=== PATIENT | female | born 1985 | race Hispanic/Latino ===

== ENCOUNTER → 2024-02-05 07:11 | Outpatient (REF) | payer OTHER, SELFPAY ==
[2024-02-05 09:16] LABS: Blood Urea Nitrogen 14 mg/dl (7-17); Calcium 8.8 mg/dl (8.4-10.2); Carbon Dioxide 23 mmol/L (22-30); Chloride 110 mmol/L (98-107); Glucose 94 mg/dl (70-99); Potassium 4.4 mmol/L (3.5-5.1); Sodium 135 mmol/L (135-145); eGFR > 60.00
[2024-02-05 09:21] LABS: Vitamin D, 25-OH*** 32.6 ng/mL (30-80)
[2024-02-05 09:31] LABS: Glycohemoglobin (HgbA1c) 5.8 % (4.0-5.6)
== END ==
LOC: CLINIC 07:11
PROVIDERS: ATTENDING PHYSICIAN Nurse Practitioner Adult Health
DX: E55.9 Vitamin D deficiency, unspecified (principal); R73.9 Hyperglycemia, unspecified
CPT/HCPCS: 36415; 80048; 82306; 83036

== ENCOUNTER → 2024-08-06 07:28 | Outpatient (REF) | payer OTHER, SELFPAY ==
[2024-08-06 08:05] LABS: % Basophils 0.6 % (0-2); % Eosinophils 3.6 % (0-6); % Immature Granulocytes 0.2 % (0-0.5); % Lymphocytes 29.9 % (20.5-51.1); % Monocytes 7.2 % (1.7-9.3); % Neutrophils 58.5 % (42.2-75.2); Absolute Basophils 0.1 10^3/uL (0-0.2); Absolute Eosinophils 0.3 10^3/uL (0-0.7); Absolute Lymphocytes 2.5 10^3/uL (1.2-3.4); Absolute Monocytes 0.6 10^3/uL (0.1-0.6); Absolute Neutrophils 4.9 10^3/uL (1.4-6.5); Hematocrit 36.4 % (37.0-47.0); Hemoglobin 12.3 g/dL (12.0-16.0); Mean Corp Hgb Conc. 33.8 g/dL (33.0-37.0); Mean Corpuscular Volume 82.9 fL (81.0-99.0); Mean Platelet Volume 9.5 fL (7.4-10.4); Nucleated Red Blood Cells % 0 %; Platelet Count 415 10^3/uL (130-400); Red Blood Cell Count 4.39 10^6/uL (4.20-5.40); Red Cell Dist. Width 13.7 % (11.5-14.5); White Blood Cell Count 8.4 10^3/uL (4.8-10.8)
[2024-08-06 08:45] LABS: Blood Urea Nitrogen 14 mg/dl (7-17); Calcium 9.4 mg/dl (8.4-10.2); Carbon Dioxide 23 mmol/L (22-30); Chloride 106 mmol/L (98-107); Glucose 92 mg/dl (70-99); Potassium 4.3 mmol/L (3.5-5.1); Sodium 142 mmol/L (135-145); eGFR > 60.00
[2024-08-06 08:53] LABS: Vitamin D, 25-OH*** 41.8 ng/mL (30-80)
[2024-08-06 09:43] LABS: Glycohemoglobin (HgbA1c) 5.4 % (4.0-5.6)
== END ==
LOC: REG 07:28
PROVIDERS: ATTENDING PHYSICIAN Nurse Practitioner Adult Health
DX: E55.9 Vitamin D deficiency, unspecified (principal); D64.9 Anemia, unspecified; R73.03 Prediabetes
CPT/HCPCS: 36415; 80048; 82306; 83036; 85025

== ENCOUNTER → 2025-08-07 07:19 | Outpatient (REF) | payer OTHER, SELFPAY ==
[2025-08-07 08:20] LABS: Hematocrit 35.4 % (37.0-47.0); Hemoglobin 11.5 g/dL (12.0-16.0); Mean Corp Hgb Conc. 32.5 g/dL (33.0-37.0); Mean Corpuscular Volume 84.3 fL (81.0-99.0); Platelet Count 397 10^3/uL (130-400); Red Cell Dist. Width 13.7 % (11.5-14.5)
[2025-08-07 08:59] LABS: ALT (SGPT) 19 U/L (0-35); AST (SGOT) 23 U/L (14-36); Albumin 3.8 g/dl (3.5-5.0); Alkaline Phosphatase 94 U/L (38-126); Blood Urea Nitrogen 19 mg/dl (7-17); Calcium 9.1 mg/dl (8.4-10.2); Carbon Dioxide 25 mmol/L (22-30); Chloride 108 mmol/L (98-107); Glucose 95 mg/dl (70-99); Potassium 4.3 mmol/L (3.5-5.1); Sodium 139 mmol/L (135-145); Total Protein 7.1 g/dl (6.3-8.2); eGFR > 60.00
[2025-08-07 09:03] LABS: Vitamin D, 25-OH*** 24.2 ng/mL (30-80)
[2025-08-07 09:21] LABS: Glycohemoglobin (HgbA1c) 5.6 % (4.0-5.6)
== END ==
LOC: CLINIC 07:19
PROVIDERS: ATTENDING PHYSICIAN Nurse Practitioner Adult Health
DX: E55.9 Vitamin D deficiency, unspecified (principal); D64.9 Anemia, unspecified; R73.03 Prediabetes
CPT/HCPCS: 36415; 80053; 82306; 83036; 85027

== ENCOUNTER 2025-10-08 00:35 | Emergency (ER) | payer SELFPAY ==
[2025-10-08 00:41] VITALS: BP 115/76
[2025-10-08 01:49] VITALS: BMI 34.1
[2025-10-08 01:50] VITALS: BP 109/65
--- NOTE | 2025-10-08 02:59 | ED.GENMED ---
History of Present Illness
General
Chief Complaint: Fall
Source: patient
Exam Limitations: none
Time Seen by Provider: 10/08/25 01:56
Nursing documentation reviewed up to this point in time: agreed with
History of Present Illness
History of Present Illness:
40-year-old Mongolian-speaking female here with her daughter
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 She has pain with any movement of her right elbow without any deformity, numbness tingling or weakness. She has no head ache, head injury, neck
pain, shoulder pain. She had no loss of consciousness. No pain medication was given prior to arrival. She is not had any other complaints.
Past History
Past History
ED Past Medical History: None
ED Past Surgical History: None
Social History
Tobacco: Non-smoker
Alcohol: None
Personal: Single
Living: with family
Review of Systems
Review of Systems
Allergies reviewed?: Yes
All Other Systems: Not applicable
Phy Exam
Physical Exam
Physical Exam:
GENERAL: Alert , in no apparent distress, comfortable at rest
HEAD: NCAT
CV: 2+ radial PULSES B/L
NEUROLOGICAL: Alert and oriented, no focal neuro deficits, , 5/5 strength, sensation intact,
SKIN: Warm and dry, no bruising or skin tear
MUSCULOSKELETAL: Mild soft tissue swelling of the right posterior elbow, no bruising, tenderness to the right radial head, pain with flexion and pronation
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
PSYCH: Normal and appropriate interaction.
Course
Orders/Labs/Results
Orders:
Orders
10/08/25 00:47
Elbow, Right 3 View [CR Elbow - Right Min 3 Views] Urgent
Comment:
Reason For Exam: fell, c/o pain r elbow
10/08/25 02:56
Ibuprofen [Motrin] 600 mg PO NOW STA
Vital Signs
Initial and Last Documented VS:
Initial Vital Signs
Temp Pulse BP Pulse Ox
36.9 C 96 115/76 98
10/08/25 00:41 10/08/25 00:41 10/08/25 00:41 10/08/25 00:41
Last Documented Vital Signs
Temp Pulse Resp BP Pulse Ox
36.9 C 87 18 109/65 99
10/08/25 00:41 10/08/25 01:50 10/08/25 01:50 10/08/25 01:50 10/08/25 03:04
MDM/Problems Addressed
Differential Diagnosis Includes:
Radial head fracture, contusion, sprain
MDM/Problems Addressed:
40-year-old [id number] female had a mechanical slip and fall on ice landing on her right elbow. She has pain and limited range of motion of the right elbow. On x-ray she has a nondisplaced intra-articular right radial head fracture. She
was splinted by emergency response technician and a posterior splint with a sling
Workmen's Comp. outpatient follow-up Ortho
*Pulse Oximetry
SaO2: 99
Oxygen Mode of Delivery: Room air
Patient hypoxic: no (98)
*Critical Care Note
Total Time (30-74mins, 75-104mins- exclusive of procedures): Not Applicable
ED Attending Note
-
Portions of this chart may have been created with voice recognition software.� Occasional wrong word or��sound alike� substitutions may have occurred due to the inherent limitations of voice recognition software.
Discharge Plan
Departure
Patient Disposition: Home (Routine Discharge)
Date of Disposition: 10/08/25
Time of Disposition: 03:02
Patient with high blood pressure during this ER visit?: No
Condition: Fair
Covid-19: Not Applicable
Discharge Problem:
Fracture of head of radius
Instructions: Elbow Fracture, Adult ED
Referrals:
NONE,* [Family Provider, Internal Medicine]
Richard Tian MD [Active, Orthopedics] - Follow up in 5-7 days
Stand Alone Forms: Return to Work
Activity Restrictions/Additional Instructions:
You broke your right elbow, the radial head. You should wear the splint and use the sling until follow-up with Workmen's Comp. and orthopedics. No work until then. Ibuprofen every 8 hours for pain as needed. Ice on top of the splint is fine,
do not get the splint wet otherwise.
Interventions
Interventions:
*General Assessment Last Done: 10/08/25 01:52
*Neglect/Abuse Screening Last Done: 10/08/25 01:52
*ED COVID-19 Vaccine History Last Done: 10/08/25 01:52
*ED Influenza Vaccine History Last Done: 10/08/25 01:52
[facility] Risk Assessment Tool Last Done: 10/08/25 01:52
*Risk Screen - Suicide (C-SSRS) Last Done: 10/08/25 00:41
*Nursing Disposition Last Done: 10/08/25 03:36
ED-Musculoskeletal Assessment Last Done: 10/08/25 01:52
ED- Neurological Assessment Last Done: 10/08/25 01:52
ED-Skin Assessment Last Done: 10/08/25 01:52
Discharge Date and Time
Discharge Date/Time: 10/08/25 03:37
Print Language: ROMANSH
[2025-10-08] MEDS: MOTRIN 600 MG PO (03:02)
== END 2025-10-08 03:37 | disposition home or self-care (01) ==
LOC: EMR 00:35
PROVIDERS: EMERGENCY PHYSICIAN Emergency Medicine
DX: S52.124A Nondisplaced fracture of head of right radius, initial encounter for closed fracture (principal); W00.0XXA Fall on same level due to ice and snow, initial encounter; Y99.0 Civilian activity done for income or pay
CPT/HCPCS: 29105; 99283; 73080